=== PATIENT | male | born 1975 ===

== ENCOUNTER 2017-08-07 14:33 | Inpatient (IN) | payer SELFPAY ==
[2017-08-07 15:36] LABS: Oxyhemoglobin 93.1 % (94.0-97.0); Sodium 140 mmol/L (135-148)
[2017-08-07 15:40] LABS: Modified Allen's Test POSITIVE; Vent NO
[2017-08-07] MEDS ORDERED: Acetaminophen 325 MG TAB PO PRN (20:12)
[2017-08-07] MEDS ORDERED: Ondansetron ODT 4 MG TAB PO PRN (20:12)
[2017-08-07] MEDS ORDERED: Albuterol Sulfate 2.5 mg/3 ml Neb NEB PRN (20:12)
[2017-08-07] MEDS ORDERED: Calcium Carbonate 500 MG ChewTAB PO PRN (20:12)
[2017-08-07] MEDS ORDERED: Bisacodyl 5 MG TAB PO PRN (20:12)
[2017-08-07] MEDS ORDERED: Loratadine 10 MG TAB PO SCH (20:12)
[2017-08-07] MEDS ORDERED: Nicotine 14 MG PATCH TD PRN (20:12)
[2017-08-07] MEDS: Famotidine/PF 20 mg/2ml Vial SLOW IVP SCH (20:55)
[2017-08-07] MEDS: Pravastatin Sodium 40 MG TAB PO SCH (20:56)
[2017-08-07] MEDS: guaiFENesin ER 600 MG TAB PO SCH (20:56)
[2017-08-07] MEDS: D5 1/2 NS w/20 mEq KCL 1,000 ML IV SCH (20:57)
[2017-08-07] MEDS ORDERED: Pravastatin Sodium 20 MG TAB PO SCH (21:00)
--- NOTE | 2017-08-07 21:07 | RAD ---
TWO AP VIEWS OF THE CHEST 08/07/17 INDICATION: COPD, cough. COMPARISON: Prior exam performed earlier 11:15 a.m. IMPRESSION: The examination is not appreciably changed. Cardiomegaly persists. No pleural effusion or pneumothora x is evident. Pulmonary vasculature is within normal limits. POS: YARELY
[2017-08-07 22:09] VITALS: BMI 50.9
[2017-08-08 05:32] LABS: #Basophils 0.1 thou/uL (0.0-0.2); #Lymphocytes 0.8 thou/uL (1.20-3.40); #Monocytes 0.4 thou/uL (0.11-0.59); %Basophils 0.7 % (0.0-1.0); %Eosinophils 0.3 % (0.0-10.0); %Lymphocytes 6.7 % (21.0-51.0); %Monocytes 3.1 % (0.0-10.0); Hematocrit 46.2 % (42.0-52.0); Mean Platelet Volume 6.8 fL (7.4-10.4); Red Blood Cell (RBC) Count 4.53 mill/uL (4.70-6.10); White Blood Cell (WBC) Count 11.2 thou/uL (4.8-10.8)
[2017-08-08 05:43] LABS: Anion Gap 11 mmol/L (10-20); BUN (Urea Nitrogen) 13 mg/dL (8.9-20.6); Calc. Creatinine Clearance 288 mL/min (70-130); Calcium 9.6 mg/dL (7.8-10.44); Carbon Dioxide 33 mmol/L (22-29); Chloride 98 mmol/L (98-107); Estimated GFR-MDRD Greater than 90
[2017-08-08 07:12] LABS: ALT (SGPT) 16 U/L (8-55); AST (SGOT) 15 U/L (5-34); Alkaline Phosphatase 57 U/L (40-150); Bilirubin, Direct 0.5 mg/dL (0.1-0.3); Bilirubin, Total 1.2 mg/dL (0.2-1.2); Protein, Total 7.9 g/dL (6.0-8.3)
--- NOTE | 2017-08-08 07:57 | HP-2 ---
CODE STATUS: FULL. PRIMARY CARE PHYSICIAN: Dr. Sebastian ATTENDING: Patrick Hong M.D. RESIDENT: Dr. Kyara Barlow. HISTORY OF PRESENT ILLNESS: Patient is a 42-year-old male with PMH of CHF, transferred from [place] due to shortness of breath, onset 2 days ago. Has had prior episode like this 2 years prior. Had a fever at outside ED to 100.4, presented with an oxygen saturation of 67% on room air. He was given DuoNebs, albuterol nebs, Levaquin, Rocephin, and Solu-Medrol at outside ED and transferred for higher level of care. He was also given 2 grams of mag, nitroglycerin, and aspirin 324 mg at outside ED. Patient reported 2 days of cough with increased sputum and chills along with allergy like symptoms of watery itchy eyes and rhinorrhea. Has not been around any ill contacts. Denies prior lung disease such as COPD, although does have significant smoking history. PAST MEDICAL HISTORY: 1. Gout. 2. Hypertension. 3. Hyperlipidemia. 4. Congestive heart failure. 5. ?Cardiomyopathy. 6. Seasonal allergies. PAST SURGICAL HISTORY: 1. Spinal surgery. 2. Right knee surgery. ALLERGIES: No known drug allergies. MEDICATIONS: 1. Allopurinol 300 mg daily. 2. Carvedilol 25 mg. 3. Lisinopril 20 mg daily. 4. Pravastatin 20 mg daily. 5. Spironolactone 50 mg daily. 6. Furosemide 40 mg daily. FAMILY HISTORY: Dad with coronary artery disease. SOCIAL HISTORY: Patient smokes half pack a day, which is a recent improvement from 1 pack per day for the last 20 years. Occasional/weekend use of alcohol 3 to 4 mixed drinks. Denies drug use. 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 REVIEW OF SYSTEMS: General: No fever. Positive for chills. No change in appetite or sleep. No night sweats. Eyes: Negative for vision changes. ENT: Positive for nasal congestion, sinus pressure, and rhinorrhea. Respiratory: Positive for cough. Positive for sputum production. Positive for congestion. Positive for shortness of breath. Cardiovascular: Denies chest pain or palpitations. Gastrointestinal: Denies nausea, vomiting, diarrhea, constipation. Genitourinary: Denies dysuria, polyuria. Skin: Denies rashes. Musculoskeletal: Denies joint pain, tenderness, stiffness. Neurologic: Denies weakness, numbness. Psychiatric: Denies anxiety, depression. PHYSICAL EXAMINATION: VITAL SIGNS: Blood pressure 120/61, pulse 79, respiratory rate 23, T-max 100.3 , pulse ox 92% on CPAP, currently at 180.53 kilograms. GENERAL: Patient is alert and oriented x4, in mild respiratory distress with CPAP in place, is obese and appropriately interactive. EYES: PERRLA, EOMI. Conjunctivae within normal limits. ENT: Nasal mucosa within normal limits. Oropharynx mildly erythematous. NECK: Supple, with increased neck circumference. CARDIOVASCULAR: Tachycardic on exam. No murmurs. Pedal pulses 2+. RESPIRATORY: Increased effort, no retractions. Positive for wheezing throughout and decreased air movement along with decreased breath sounds in the right lower lateral greater than left. EXTREMITIES: Trace edema. No rash. MUSCULOSKELETAL: Structure within normal limits. Tone within normal limits. NEUROLOGIC: No focal deficits. Cranial nerves II-XII intact. GCS 15. PSYCHIATRIC: Appropriate. LABORATORY DATA: CBC: White blood cell count 17.3, hemoglobin 16.8, hematocrit 49.4, platelets 219, MCV 97, 86% neutrophils. Chemistries: Sodium 140, potassium 3.7, chloride 97, CO2 of 31, BUN 10, creatinine 0.82, glucose 108 , GFR greater than 90, calcium 9.4, total protein 8.5, albumin 4.2. AST 24, ALT 21, alkaline phosphatase 63, total bilirubin 2.6. D-dimer less than 0.27, CK-MB 4.2 and troponin 0.020, BNP 59. Flu A and B negative. Blood gas in the outside ED 7.35, pCO2 of 63.1, PaO2 50.1 and bicarbonate of 34.2. IMAGING: Chest x-ray, no evidence of infiltrate. Poor quality image. ASSESSMENT AND PLAN: A 42-year-old male with past medical history of congestive heart failure, complaining of shortness of breath x2 days with fever and admitted for sepsis and acute respiratory distress with hypoxia secondary to pneumonia. 1. Sepsis secondary to community-acquired pneumonia. Patient is tachycardic, tachypneic, febrile with increased white blood cell count and left shift. We will give Levaquin 750 mg q.24 hours, D5 half normal saline with Kcl at 75ml/ hr. Blood cultures, sputum cultures obtained. BMP and CBC will be repeated in the morning. 2. Acute hypoxic hypercapnic respiratory failure secondary to community- acquired pneumonia. DuoNeb q.4 hours scheduled, q.2 hour p.r.n., methylprednisone 80 mg IV daily, on CPAP, Lasix 40 mg p.o. We will wean to greater than or equal to 92% goal. Chest x-ray in the morning and repeat ABG in the morning. 3. Congestive heart failure. We will provide home medications Coreg, spironolactone, lisinopril, and Lasix. Monitor strict I's and O's and give gentle fluids in the setting of sepsis, we will require a 500 mL bolus now and will have close observation for possible fluid overload. 4. Hypertension. Lisinopril 20 mg daily with home medications. P.r.n. hydralazine for systolic blood pressure greater than 180. 5. Hyperlipidemia daily, pravastatin. 6. Gout daily, allopurinol. 7. Tobacco abuse. Counseled on cessation. 8. Gastrointestinal prophylaxis, famotidine. 9. Deep venous thrombosis prophylaxis. Lovenox. DISPOSITION AND LENGTH OF HOSPITAL STAY: 1 to 3 days. Symptomatic medications will be provided. History and physical exam as well as management was discussed with Dr. Hong. DANNY
[2017-08-08] MEDS ORDERED: Carvedilol 25 MG TAB PO SCH (08:00)
[2017-08-08] MEDS: Spironolactone 100 MG TAB PO SCH (08:16)
[2017-08-08] MEDS: Allopurinol 300 MG TAB PO SCH (08:16)
[2017-08-08] MEDS: Lisinopril 20 MG TAB PO SCH (08:16)
[2017-08-08] MEDS: Furosemide 40 MG TAB PO SCH (08:16)
[2017-08-08] MEDS: guaiFENesin ER 600 MG TAB PO SCH ×2 (08:16→21:17)
[2017-08-08] MEDS: Enoxaparin Sodium 40 MG/0.4 ML SYRINGE SC SCH (08:17)
[2017-08-08] MEDS: Famotidine/PF 20 mg/2ml Vial SLOW IVP SCH ×2 (08:17→21:17)
[2017-08-08] MEDS: Loratadine 10 MG TAB PO SCH (08:17)
[2017-08-08] MEDS: D5 1/2 NS w/20 mEq KCL 1,000 ML IV SCH ×2 (08:46→21:20)
[2017-08-08] MEDS ORDERED: cefTRIAXone\\ROCEPHIN 1 GM in Syringe 10 ML IVPB SCH (09:00)
[2017-08-08] MEDS ORDERED: FLU VACC QS2017-18 36 mo. & older 0.5 ML SYRINGE IM ONE (09:00)
[2017-08-08 09:38] LABS: Oxyhemoglobin 84.3 % (94.0-97.0); Sodium 140 mmol/L (135-148)
[2017-08-08 10:24] LABS: Mode O2 2L/M NC; Modified Allen's Test NOT DONE; Vent NO
--- NOTE | 2017-08-08 14:20 | ADD-PRG ---
ADDENDUM: 08/08/2017 This is an addendum to the note of Dr. Iliana Kay. Mr. 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 His ABGs this morning revealed a pH 7.35, pCO2 of 62, pO2 of 49.2. He also has a possible history of "COPD" although this is not for certain according to the patient. We will continue to follow the patient with the supervisor cleaning and annealing and to continue him on treatment for his pn eumonia. This morning, he appears much more comfortable and says he feels much better. He is awake and alert and he does not appear to be in any respiratory distress. He does not appear to be at all confused.
[2017-08-08] MEDS: Carvedilol 25 MG TAB PO SCH ×2 (15:56→16:10)
--- NOTE | 2017-08-08 16:50 | CON ---
DATE OF CONSULTATION: 08/08/2017 HISTORY OF PRESENT ILLNESS: Mr. Bob is a very pleasant gentleman. He is 42 who lives over in [facility]. He has been followed for cardiomyopathy by a hat forming machine feeder in [place]. He has never been told he has asthma or COPD. He did develop a febrile illness over the last few days, started getting short of breath. He has had a productive cough with this. He went to the emergency room in [place] and subsequently was transferred here. He says he feels 100% better than he felt yesterday. PAST MEDICAL HISTORY: Remarkable for hypertension, lipid disorder, cardiomyopathy that he tells me improved with medical management. PAST SURGICAL HISTORY: History of back surgery and knee surgery. SOCIAL HISTORY: He is a smoker. He is not a daily drinker. REVIEW OF SYSTEMS: Otherwise negative. FAMILY HISTORY: Negative for lung disease at an early age. PHYSICAL EXAMINATION: VITAL SIGNS: Afebrile, heart rate is 85, respiratory rate 16, oximetry is 91 on 2 liters, blood pressure 132/90. HEENT: Pupils are equal. Sclerae is anicteric. NECK: Supple. He has a big neck. LUNGS: Chest is clear now. HEART: Regular rhythm. S1 and S2 are normal. ABDOMEN: Soft and nontender. EXTREMITIES: Without clubbing, cyanosis, or edema. X-RAY FINDINGS: Chest radiograph shows no infiltrates or pulmonary edema. LABORATORY DATA: White count 11.2, hemoglobin 14.7, platelets 215. Sodium 138 , potassium 3.9, chloride 98, bicarbonate 33, BUN 13, creatinine 0.86, pH 7.36, CO2 57, pO2 84; yesterday that was on 40% on 2 liters pH 7.35, CO2 62, pO2 49. IMPRESSION: 1. Obesity hypoventilation. 2. Acute bronchitis. 3. History of cardiomyopathy, not a clinical problem at this time. 4. Tobacco use. He was counseled about smoking. PLAN: Continue current medications. Hopefully, he will be a candidate to go home in 24-48 hours. He definitely needs a sleep study. He tells me his hat forming machine feeder has been talking to him about this, but he has not made the time. [facility]ITALNathan
--- NOTE | 2017-08-08 20:57 | PDOC.FM ---
- Subjective Subjective: Pt sitting upright on nasal cannula this morning. Has just been taken off Bipap by RT at 0700 and pt satting 88-91% on 3L. Pt endorses less SOB than yesterday and improvement in symptoms. - Objective MAR Reviewed: Yes Vital Signs & Weight: Vital Signs (12 hours) Temp Pulse Resp BP BP Pulse Ox 08/08/17 18:26 81 20 92 L 08/08/17 15:15 85 16 91 L 08/08/17 15:00 98.4 F 76 20 160/82 H 93 L 08/08/17 12:10 98.2 F 76 20 132/90 92 L 08/08/17 10:55 82 20 92 L I&O: 08/07/17 08/08/17 08/09/17 06:59 06:59 06:59 Intake Total 1035 Output Total 975 300 Balance 60 -300 Result Diagrams: 08/08/17 04:59 08/08/17 04:59 Radiology Reviewed by me: Yes (perihilar infiltrates R>L, cardiomegaly) Phys Exam - Physical Examination Constitutional: NAD HEENT: PERRLA, oral pharynx no lesions dry mm Neck: no nodes, no JVD diffuse inspiratory & expiratory wheeze w/ ronchi bilaterally Cardiovascular: RRR, no significant murmur Gastrointestinal: soft, non-tender Musculoskeletal: no edema Neurological: non-focal Psychiatric: normal affect, A&O x 3 Skin: no rash, normal turgor Dx/Plan (1) Acute respiratory failure with hypoxia and hypercapnia Code(s): J96.01 - ACUTE RESPIRATORY FAILURE WITH HYPOXIA; J96.02 - ACUTE RESPIRATORY FAILURE WITH HYPERCAPNIA Status: Acute (2) Sepsis due to pneumonia Code(s): J18.9 - PNEUMONIA, UNSPECIFIED ORGANISM; A41.9 - SEPSIS, UNSPECIFIED ORGANISM Status: Acute (3) Chronic congestive heart failure Code(s): I50.9 - HEART FAILURE, UNSPECIFIED Status: Chronic Qualifiers: Congestive heart failure type: unspecified congestive heart failure type Qualified Code(s): I50.9 - Heart failure, unspecified (4) Tobacco abuse Code(s): Z72.0 - TOBACCO USE Status: Chronic (5) Hypertension Code(s): I10 - ESSENTIAL (PRIMARY) HYPERTENSION Status: Chronic Qualifiers: Hypertension type: unspecified Qualified Code(s): I10 - Essential (primary ) hypertension (6) Hyperlipidemia Code(s): E78.5 - HYPERLIPIDEMIA, UNSPECIFIED Status: Chronic Qualifiers: Hyperlipidemia type: unspecified Qualified Code(s): E78.5 - Hyperlipidemia , unspecified - Plan Plan: 42yo CM with pmhx cardiomyopathy and chronic CHF diagnosed approximately 1 year prior here for acute respiratory failure after 3 days of fever, chills, cough and respiratory congestion-- 1) acute hypoxic hypercarbic resp failure- s/p Bipap all night. will recheck ABG this morning after being off Bipap and determine acid/base status. may require bipap again. concern for chronic hypercarbia and likely CHRIS. 2) sepsis secondary to presumed pneumonia- On rocephin & levaquin for presumed pneumonia. perihilar infiltrates on CXR but pending official read. WBC downtrending and afebrile since admission. Cont nebs. Pending BCx. may have some component of obstructive disease w/ CHRIS and/or COPD given 25 pack year hx. 3) chronic CHF- unsure of EF%, pending repeat echo today. not volume overloaded clinically on exam. continue gentle IVF for sepsis. 4) HTN home rx 5) HLD home rx attending- Dr. Yimi Kaye
[2017-08-08] MEDS: Pravastatin Sodium 40 MG TAB PO SCH (21:17)
[2017-08-09 05:17] LABS: #Lymphocytes 2.1 thou/uL (1.20-3.40); #Monocytes 1.1 thou/uL (0.11-0.59); #Neutrophils 12.6 thou/uL (1.40-6.50); %Eosinophils 0.1 % (0.0-10.0); %Lymphocytes 13.2 % (21.0-51.0); %Monocytes 6.7 % (0.0-10.0); Hematocrit 44.5 % (42.0-52.0); Mean Platelet Volume 6.9 fL (7.4-10.4); Red Blood Cell (RBC) Count 4.33 mill/uL (4.70-6.10); White Blood Cell (WBC) Count 15.8 thou/uL (4.8-10.8)
[2017-08-09 05:32] LABS: Anion Gap 9 mmol/L (10-20); BUN (Urea Nitrogen) 19 mg/dL (8.9-20.6); Calc. Creatinine Clearance 275 mL/min (70-130); Calcium 9.5 mg/dL (7.8-10.44); Carbon Dioxide 36 mmol/L (22-29); Chloride 98 mmol/L (98-107); Estimated GFR-MDRD Greater than 90
--- NOTE | 2017-08-09 07:38 | PDOC.FM ---
- Subjective Subjective: pt resting comfortably with bipap mask in place. states once he gets used to the mask feels like he is sleeping better. - Objective MAR Reviewed: Yes Vital Signs & Weight: Vital Signs (12 hours) Temp Pulse Resp BP Pulse Ox 08/09/17 07:16 97.1 F L 58 L 15 163/87 H 99 08/09/17 06:35 67 14 95 08/09/17 06:00 55 L 17 54 L 08/09/17 04:00 98.0 F 66 18 158/82 H 97 08/09/17 02:59 73 15 100 08/09/17 00:00 97.7 F 69 20 93 L 08/08/17 22:47 77 20 93 L 08/08/17 20:00 98.2 F 72 20 149/79 H 95 Weight Weight 180.643 kg I&O: 08/08/17 08/09/17 08/10/17 06:59 06:59 06:59 Intake Total 1035 1740 Output Total 975 1175 Balance 60 565 Result Diagrams: 08/09/17 04:37 08/09/17 04:37 Phys Exam - Physical Examination Constitutional: NAD HEENT: moist MMs, oral pharynx no lesions Neck: no JVD, supple diffuse end exp wheezes & ronchi Cardiovascular: RRR, no significant murmur Gastrointestinal: soft, non-tender Musculoskeletal: no edema Neurological: non-focal, normal sensation Psychiatric: normal affect, A&O x 3 Skin: no rash, normal turgor, cap refill <2 seconds Dx/Plan (1) Acute respiratory failure with hypoxia and hypercapnia Code(s): J96.01 - ACUTE RESPIRATORY FAILURE WITH HYPOXIA; J96.02 - ACUTE RESPIRATORY FAILURE WITH HYPERCAPNIA Status: Acute (2) Sepsis due to pneumonia Code(s): J18.9 - PNEUMONIA, UNSPECIFIED ORGANISM; A41.9 - SEPSIS, UNSPECIFIED ORGANISM Status: Acute (3) Obesity hypoventilation syndrome Code(s): E66.2 - MORBID (SEVERE) OBESITY WITH ALVEOLAR HYPOVENTILATION Status : Acute (4) Chronic congestive heart failure Code(s): I50.9 - HEART FAILURE, UNSPECIFIED Status: Chronic Qualifiers: Congestive heart failure type: diastolic Qualified Code(s): I50.32 - Chronic diastolic (congestive) heart failure Plan: preserved EF 50-55% (5) Tobacco abuse Code(s): Z72.0 - TOBACCO USE Status: Chronic (6) Hypertension Code(s): I10 - ESSENTIAL (PRIMARY) HYPERTENSION Status: Chronic Qualifiers: Hypertension type: unspecified Qualified Code(s): I10 - Essential (primary ) hypertension (7) Hyperlipidemia Code(s): E78.5 - HYPERLIPIDEMIA, UNSPECIFIED Status: Chronic Qualifiers: Hyperlipidemia type: unspecified Qualified Code(s): E78.5 - Hyperlipidemia , unspecified - Plan Plan: 42yo CM with pmhx nonischemic cardiomyopathy here for acute respiratory failure after 3 days of fever, chills, cough and respiratory congestion-- 1) acute hypoxic hypercarbic resp failure- Bipap qhs with improvement. concern for chronic hypercarbia and likely CHRIS & hypoventilation. may require O2 upon discharge 2) sepsis secondary to presumed pneumonia- On levaquin for presumed pneumonia vs. bronchitis. WBC downtrending and afebrile since admission. BCx show NGTD. continue nebs. 3) chronic CHF- repeat echo showed preserved EF. continue meds. not volume overloaded clinically on exam. 4) HTN home rx 5) HLD home rx attending- Dr. Yimi Kaye
[2017-08-09] MEDS ORDERED: Potassium Chloride 20 MEQ TAB PO SCH (07:45)
[2017-08-09] MEDS: Lisinopril 20 MG TAB PO SCH (09:19)
[2017-08-09] MEDS: Carvedilol 25 MG TAB PO SCH ×2 (09:19→17:18)
[2017-08-09] MEDS: guaiFENesin ER 600 MG TAB PO SCH ×2 (09:19→20:49)
[2017-08-09] MEDS: Spironolactone 100 MG TAB PO SCH (09:19)
[2017-08-09] MEDS: Loratadine 10 MG TAB PO SCH (09:20)
[2017-08-09] MEDS: Allopurinol 300 MG TAB PO SCH (09:20)
[2017-08-09] MEDS: Furosemide 40 MG TAB PO SCH (09:20)
[2017-08-09] MEDS: Famotidine/PF 20 mg/2ml Vial SLOW IVP SCH (09:21)
[2017-08-09] MEDS: Enoxaparin Sodium 40 MG/0.4 ML SYRINGE SC SCH (09:21)
[2017-08-09] MEDS: Potassium Chloride 20 MEQ TAB PO SCH (09:26)
--- NOTE | 2017-08-09 12:40 | ADD-PRG ---
DATE OF SERVICE: 08/09/2017 ADDENDUM This is an addendum to the note of Dr. Iliana Kay. Mr. Bob again continues awake and alert. Vital signs are stable. He will likely be transferred to the floor, although he still is at times requiring BiPAP. He likely has sleep apnea who urged to get a sleep study upon being discharged. He seems to understand the importance of getting this down as it has been recommended in the past. Otherwise, overall clinically is improving.
--- NOTE | 2017-08-09 15:53 | PRG ---
DATE OF SERVICE: 08/09/2017 SUBJECTIVE: Mr. Bob says he feels better. He thinks that pressure settings on BiPAP are a little h igh. OBJECTIVE: VITAL SIGNS: He is afebrile, heart rate in the 70s, respiratory rate is 20, oximetry is 92, blood pr essure 143/77. LUNGS: Clear. HEART: Regular rhythm. LABORATORY: White count 15.8, hemoglobin 14.4, platelets 253. Sodium 140, potassium 3.4, chloride 9 8, bicarbonate 36, BUN 19, creatinine 0.9. IMPRESSION: 1. Obesity hypoventilation. 2. History of cardiomyopathy. 3. Asthmatic bronchitis. 4. Tobacco use up until this admission. I would continue with BiPAP at night and I have adjusted his settings. In my opinion, he can be safe ly transferred to a medical bed.
[2017-08-09] MEDS: Famotidine 20 MG TAB PO SCH (20:48)
[2017-08-09] MEDS: Pravastatin Sodium 40 MG TAB PO SCH (20:49)
[2017-08-09] MEDS ORDERED: hydrALAZINE 20 MG/ML VIAL SLOW IVP SCH (22:00)
[2017-08-10 05:49] LABS: #Monocytes 0.9 thou/uL (0.11-0.59); #Neutrophils 11.4 thou/uL (1.40-6.50); %Basophils 0.3 % (0.0-1.0); %Eosinophils 0.1 % (0.0-10.0); %Lymphocytes 14.2 % (21.0-51.0); %Monocytes 5.9 % (0.0-10.0); Hematocrit 43.5 % (42.0-52.0); Mean Platelet Volume 6.5 fL (7.4-10.4); White Blood Cell (WBC) Count 14.3 thou/uL (4.8-10.8)
[2017-08-10 06:00] LABS: Anion Gap 11 mmol/L (10-20); BUN (Urea Nitrogen) 21 mg/dL (8.9-20.6); Calc. Creatinine Clearance 301 mL/min (70-130); Calcium 9.4 mg/dL (7.8-10.44); Carbon Dioxide 31 mmol/L (22-29); Chloride 98 mmol/L (98-107); Estimated GFR-MDRD Greater than 90
[2017-08-10] MEDS: Furosemide 40 MG TAB PO SCH (06:22)
[2017-08-10] MEDS ORDERED: Potassium Chloride 20 MEQ TAB PO SCH (08:15)
[2017-08-10] MEDS: Enoxaparin Sodium 40 MG/0.4 ML SYRINGE SC SCH (08:39)
[2017-08-10] MEDS: Lisinopril 20 MG TAB PO SCH (08:40)
[2017-08-10] MEDS: Allopurinol 300 MG TAB PO SCH (08:40)
[2017-08-10] MEDS: Loratadine 10 MG TAB PO SCH (08:40)
[2017-08-10] MEDS: Carvedilol 25 MG TAB PO SCH ×2 (08:40→17:46)
[2017-08-10] MEDS: Potassium Chloride 20 MEQ TAB PO SCH (08:40)
[2017-08-10] MEDS: Famotidine 20 MG TAB PO SCH ×2 (08:41→20:26)
[2017-08-10] MEDS: guaiFENesin ER 600 MG TAB PO SCH ×2 (08:41→20:25)
[2017-08-10] MEDS: Spironolactone 100 MG TAB PO SCH (08:41)
[2017-08-10] MEDS ORDERED: hydrALAZINE 10 MG TAB PO SCH (09:00)
--- NOTE | 2017-08-10 10:25 | PDOC.FM ---
Addendum entered and electronically signed by Jim Paz MD 08/10/17 10:32 : Hypokalemia- replaced Potassium 40 mEq and repeat BMP in AM. Original Note: - Subjective Subjective: CC: chest congestion HPI: Reports central chest congestion. Denies chest pain. States he has been resting well with BiPAP and understands he need formal sleep study performed. denies EARLY or focal weakness. - Objective MAR Reviewed: Yes Vital Signs & Weight: Vital Signs (12 hours) Temp Pulse Resp BP BP BP Pulse Ox 08/10/17 10:22 156/88 H 08/10/17 08:40 72 186/101 H 08/10/17 07:59 98.2 F 72 20 200/130 H 98 08/10/17 07:40 71 16 97 08/10/17 07:32 97.5 F L 75 16 08/10/17 05:19 97.5 F L 75 16 214/62 H 98 08/10/17 03:44 61 18 98 08/10/17 03:43 99 08/09/17 23:00 70 178/108 H 08/09/17 22:58 62 16 100 Weight Weight 179.759 kg I&O: 08/09/17 08/10/17 08/11/17 06:59 06:59 06:59 Intake Total 1740 Output Total 1175 450 Balance 565 -450 Result Diagrams: 08/10/17 04:49 08/10/17 04:49 EKG Reviewed by me: Yes (SR with BBB rate 70s) <Jim Paz - Last Filed: 08/10/17 10:23> - Objective Vital Signs & Weight: Vital Signs (12 hours) Temp Pulse Resp BP BP Pulse Ox 08/10/17 12:06 75 16 08/10/17 11:59 97.7 F 73 20 177/79 H 93 L 08/10/17 11:16 72 186/101 H 08/10/17 10:22 156/88 H 08/10/17 08:40 72 186/101 H 08/10/17 07:59 98.2 F 72 20 200/130 H 98 08/10/17 07:40 71 16 97 08/10/17 07:32 97.5 F L 75 16 08/10/17 05:19 97.5 F L 75 16 214/62 H 98 08/10/17 03:44 61 18 98 08/10/17 03:43 99 Weight Weight 179.759 kg I&O: 08/09/17 08/10/17 08/11/17 06:59 06:59 06:59 Intake Total 1740 Output Total 1175 450 Balance 565 -450 Result Diagrams: 08/10/17 04:49 08/10/17 04:49 <Regan Vasquez - Last Filed: 08/10/17 14:27> Phys Exam - Physical Examination Constitutional: NAD HEENT: moist MMs, sclera anicteric Neck: no nodes, supple Respiratory: wheezing present wheezing LLL and RUL. rhonchi RLL Cardiovascular: RRR, no significant murmur Gastrointestinal: soft, non-tender Musculoskeletal: edema present (trace) Neurological: non-focal, moves all 4 limbs Psychiatric: normal affect, A&O x 3 Skin: no rash, cap refill <2 seconds <Jim Paz - Last Filed: 08/10/17 10:23> Dx/Plan (1) Acute respiratory failure with hypoxia and hypercapnia Code(s): J96.01 - ACUTE RESPIRATORY FAILURE WITH HYPOXIA; J96.02 - ACUTE RESPIRATORY FAILURE WITH HYPERCAPNIA Status: Acute Plan: Weaning off oxygen. Still requires BiPAP at night. will need outpatient evaluation. (2) Hypertension Code(s): I10 - ESSENTIAL (PRIMARY) HYPERTENSION Status: Chronic QualifierTitle: Hypertension type: unspecified Qualified Code(s): I10 - Essential (primary) hypertension Plan: SBP remains elevated in 200s. - Increased Lisinopril to 40 mg - Started hydralazine 10 mg QID and Amlodipine 5 mg daily - may need to D/C hydralazine as amlodipine begins to take effect. (3) CAP (community acquired pneumonia) Code(s): J18.9 - PNEUMONIA, UNSPECIFIED ORGANISM Status: Acute QualifierTitle: Laterality: unspecified laterality Qualified Code(s): J18.9 - Pneumonia, unspecified organism Plan: Levaquin day 4. Cultures negative to date - switch to PO levaquin. Will need 7 days total. (4) Obesity hypoventilation syndrome Code(s): E66.2 - MORBID (SEVERE) OBESITY WITH ALVEOLAR HYPOVENTILATION Status : Acute Plan: continue BiPAP. Outpatient Evaluation for sleep apnea. (5) Chronic congestive heart failure Code(s): I50.9 - HEART FAILURE, UNSPECIFIED Status: Chronic QualifierTitle: Congestive heart failure type: diastolic Qualified Code(s ): I50.32 - Chronic diastolic (congestive) heart failure Plan: Echo showed preserved EF. no signs of fluid overload. Follow up outpatient. <Jim Paz - Last Filed: 08/10/17 10:23> Attending Addendum - Attending Addendum I personally evaluated the patient and discussed the management with Dr. Paz. I agree with the History, Examination, Assessment and Plan documented above with any addition or exceptions noted below. When BP is better controlled, patient may be ready for discharge. Convert to po meds. <Regan Vasquez - Last Filed: 08/10/17 14:27>
[2017-08-10] MEDS: Amlodipine 5 MG TAB PO SCH (11:16)
[2017-08-10] MEDS: hydrALAZINE 10 MG TAB PO SCH ×3 (14:29→20:25)
--- NOTE | 2017-08-10 15:00 | PRG ---
DATE OF SERVICE: 08/10/2017 SUBJECTIVE: Mr. Bob did well overnight. He would like to lower pressures. He informed me he does not have any coverage. He has had some elevated blood pressures over the last 24 hours. His blood p ressure 06/28/2017 was 156/88. His heart rate is 72, his respiratory rate is 18. His lungs are completely clear now. IMPRESSION: Asthmatic bronchitis. PLAN: 1. Prednisone, 40 for 4 days, 20 for 6 days, 10 for 6 days. 2. Doxycycline 100 mg twice a day. 3. Nebulizer. 4. Ipratropium unit dose 4 times a day and albuterol 4 times a day. If he is doing well, he can do this 2-3 times a day. He can pay ramirez for the above medicines and these are reasonably inexpensive compared to other prescr iption drugs that are out there. [facility]. He will see me in 2 weeks. At that time, we will probably prescribe an auto titrating device. He th inks he has a CPAP at home, and if it has a chip in it, we can guess at the pressure, try him for a m ont and do a download. There is no doubt in my mind that he has significant sleep apnea. At some point in time, we can do overnight oximetry. He does not have a healthcare coverage at this point in time, so we have to manage to the best of our ability within the confines of what he can aff ord financially. I will be happy to see him in a couple weeks.
[2017-08-10] MEDS: Pravastatin Sodium 40 MG TAB PO SCH (20:26)
[2017-08-11 05:10] LABS: #Lymphocytes 2.3 thou/uL (1.20-3.40); #Monocytes 0.9 thou/uL (0.11-0.59); #Neutrophils 10.2 thou/uL (1.40-6.50); %Basophils 0.2 % (0.0-1.0); %Eosinophils 0.3 % (0.0-10.0); %Lymphocytes 16.9 % (21.0-51.0); %Monocytes 6.7 % (0.0-10.0); Hematocrit 46.8 % (42.0-52.0); Mean Platelet Volume 6.5 fL (7.4-10.4); Red Blood Cell (RBC) Count 4.62 mill/uL (4.70-6.10); White Blood Cell (WBC) Count 13.4 thou/uL (4.8-10.8)
[2017-08-11 05:35] LABS: Anion Gap 12 mmol/L (10-20); BUN (Urea Nitrogen) 21 mg/dL (8.9-20.6); Calc. Creatinine Clearance 272 mL/min (70-130); Calcium 9.6 mg/dL (7.8-10.44); Carbon Dioxide 33 mmol/L (22-29); Chloride 100 mmol/L (98-107); Estimated GFR-MDRD Greater than 90
[2017-08-11] MEDS: Enoxaparin Sodium 40 MG/0.4 ML SYRINGE SC SCH (08:19)
[2017-08-11] MEDS: Potassium Chloride 20 MEQ TAB PO SCH (08:19)
[2017-08-11] MEDS: guaiFENesin ER 600 MG TAB PO SCH (08:19)
[2017-08-11] MEDS: Spironolactone 100 MG TAB PO SCH (08:19)
[2017-08-11] MEDS: hydrALAZINE 10 MG TAB PO SCH (08:20)
[2017-08-11] MEDS: Furosemide 40 MG TAB PO SCH (08:20)
[2017-08-11] MEDS: Famotidine 20 MG TAB PO SCH (08:20)
[2017-08-11] MEDS: Amlodipine 5 MG TAB PO SCH (08:20)
[2017-08-11] MEDS: Allopurinol 300 MG TAB PO SCH (08:20)
[2017-08-11] MEDS: Carvedilol 25 MG TAB PO SCH (08:20)
[2017-08-11] MEDS: Loratadine 10 MG TAB PO SCH (08:20)
[2017-08-11] MEDS: Lisinopril 20 MG TAB PO SCH (08:20)
[2017-08-11] MEDS ORDERED: hydrALAZINE 10 MG TAB PO SCH (09:00)
--- NOTE | 2017-08-11 09:03 | PDOC.FM ---
- Subjective Subjective: CC: Ready to go home HPI: Feeling well today. No concerns. Denies chest pain or SOB. States he already has f/u with blank driller on 08/20/17 and can get sleep study set up at that time. - Objective MAR Reviewed: Yes Vital Signs & Weight: Vital Signs (12 hours) Temp Pulse Resp BP BP BP Pulse Ox 08/11/17 08:20 60 206/114 H 08/11/17 08:04 98.3 F 60 16 08/11/17 07:25 98.3 F 60 16 151/82 H 99 08/11/17 06:24 65 17 08/11/17 04:45 97.7 F 74 16 141/70 H 97 08/11/17 01:29 100 18 92 L 08/11/17 00:29 97.6 F 80 18 186/91 H 97 08/11/17 00:16 100 08/10/17 22:55 64 16 100 08/10/17 22:08 68 141/91 H 08/10/17 21:18 65 18 95 Weight Weight 173.953 kg I&O: 08/10/17 08/11/17 08/12/17 06:59 06:59 06:59 Intake Total 800 Output Total 450 1800 Balance -450 -1000 Result Diagrams: 08/11/17 04:53 08/11/17 04:53 EKG Reviewed by me: Yes (SR with occasional PJC rate 60s) <Jim Paz - Last Filed: 08/11/17 09:00> - Objective Vital Signs & Weight: Vital Signs (12 hours) Temp Pulse Resp BP Pulse Ox 08/11/17 12:01 70 135/65 08/11/17 11:30 98.6 F 74 16 163/83 H 95 08/11/17 09:28 60 08/11/17 08:20 60 08/11/17 08:04 98.3 F 60 16 08/11/17 07:25 98.3 F 60 16 151/82 H 99 08/11/17 06:24 65 17 08/11/17 04:45 97.7 F 74 16 141/70 H 97 Weight Weight 173.953 kg I&O: 08/10/17 08/11/17 08/12/17 06:59 06:59 06:59 Intake Total 800 Output Total 450 1800 Balance -450 -1000 Result Diagrams: 08/11/17 04:53 08/11/17 04:53 <Regan Vasquez - Last Filed: 08/11/17 13:47> Phys Exam - Physical Examination Constitutional: NAD HEENT: moist MMs, sclera anicteric Neck: no nodes, supple Respiratory: no wheezing, no rales, no rhonchi, clear to auscultation bilateral Cardiovascular: RRR, no significant murmur Gastrointestinal: soft, no distention Musculoskeletal: pulses present Neurological: non-focal, moves all 4 limbs Psychiatric: normal affect, A&O x 3 Skin: no rash, cap refill <2 seconds <Jim Paz - Last Filed: 08/11/17 09:00> Dx/Plan (1) Hypertension Code(s): I10 - ESSENTIAL (PRIMARY) HYPERTENSION Status: Chronic QualifierTitle: Hypertension type: unspecified Qualified Code(s): I10 - Essential (primary) hypertension Plan: SBP remains elevated in 180s to 200s. - given additional 10 mg hydralazine PO with morning dose and increased dose to 25 mg QID. - if BP improves with new dose, will consider d/c today with close outpatient follow up. (2) Acute respiratory failure with hypoxia and hypercapnia Code(s): J96.01 - ACUTE RESPIRATORY FAILURE WITH HYPOXIA; J96.02 - ACUTE RESPIRATORY FAILURE WITH HYPERCAPNIA Status: Acute Plan: Off oxygen. Still requires BiPAP at night. will need outpatient evaluation for CHRIS. (3) CAP (community acquired pneumonia) Code(s): J18.9 - PNEUMONIA, UNSPECIFIED ORGANISM Status: Acute QualifierTitle: Laterality: unspecified laterality Qualified Code(s): J18.9 - Pneumonia, unspecified organism Plan: Levaquin day 5. Cultures negative to date -PO levaquin. Will need 7 days total. (4) Obesity hypoventilation syndrome Code(s): E66.2 - MORBID (SEVERE) OBESITY WITH ALVEOLAR HYPOVENTILATION Status : Acute Plan: continue BiPAP. Outpatient Evaluation for sleep apnea. (5) Chronic congestive heart failure Code(s): I50.9 - HEART FAILURE, UNSPECIFIED Status: Chronic QualifierTitle: Congestive heart failure type: diastolic Qualified Code(s ): I50.32 - Chronic diastolic (congestive) heart failure Plan: Echo showed preserved EF. no signs of fluid overload. Follow up outpatient. <Jim Paz - Last Filed: 08/11/17 09:00> Attending Addendum - Attending Addendum I personally evaluated the patient and discussed the management with Dr. Paz. I agree with the History, Examination, Assessment and Plan documented above with any addition or exceptions noted below. Patients BP is improving. Stable for discharge if BP today is improved. <Regan Vasquez - Last Filed: 08/11/17 13:47>
[2017-08-11] MEDS ORDERED: Amlodipine 5 MG TAB PO SCH ×2 (09:17→09:30)
[2017-08-11 11:54] VITALS: TEMP 98.6
[2017-08-11 12:02] VITALS: BP 135/65
[2017-08-11] MEDS ORDERED: hydrALAZINE 25 MG TAB PO SCH ×2 (14:00→17:00)
--- NOTE | 2017-08-11 14:22 | DIS-2 ---
DATE OF ADMISSION: 08/07/2017 DATE OF DISCHARGE: 08/11/2017 ADMITTING ATTENDING: Patrick Hong M.D. DISCHARGE ATTENDING: Regan Vasquez M.D. ADMITTING RESIDENT: Kyara Barlow D.O. DISCHARGE RESIDENT: Jim Paz M.D. CONSULTATIONS: Bryan Fuentes M.D. - Pulmonology. PROCEDURES: BiPAP required during the first day of hospitalization. IMAGIN. Chest x-ray on 08/07/2017, cardiomegaly, no pleural effusions or pneumothorax. Pulmonary vasculature within normal limits. 2. Transthoracic echocardiogram showing left ventricular ejection fraction of 50%-55%, technically difficult study with poor endocardial definition, mild mitral regurgitation present and mild tricuspid regurgitation. Estimated right arterial pressure 10 mmHg. PRIMARY DIAGNOSES: 1. Resolved acute hypoxic hypercapnic respiratory failure secondary to community-acquired pneumonia. 2. Presumed obstructive sleep apnea. 3. Hypertension. 4. Heart failure with preserved ejection fraction. SECONDARY DIAGNOSES: 1. Hyperlipidemia. 2. Gout. DISCHARGE MEDICATIONS: 1. Allopurinol 300 mg daily. 2. Amlodipine 10 mg daily. 3. Carvedilol 25 mg b.i.d. 4. Doxycycline 100 mg b.i.d. 5. Famotidine 20 mg b.i.d. 6. Lasix 40 mg daily. 7. Hydralazine 25 mg q.i.d. 8. DuoNeb 3 mL nebulizer treatment q.i.d. p.r.n. 9. Levaquin 750 mg for 2 additional days. 10. Lisinopril 40 mg daily. 11. Claritin 10 mg daily. 12. Pravastatin 40 mg at bedtime. 13. Prednisone 10 mg Dosepak 20 mg p.o. as directed. 14. Spironolactone 50 mg q.a.m. 15. Carvedilol 37.5 mg b.i.d. DISCONTINUED MEDICATIONS: Lisinopril 20 mg daily. HISTORY OF PRESENT ILLNESS AND HOSPITAL COURSE: Mr. Bob is a pleasant 42-year- old male who presented to the hospital with 2-day history of shortness of breath. He had had prior COPD exacerbations in the past and was concerned he was having another exacerbation. He reported increased sputum production, fevers and chills throughout this time. He initially required BiPAP due to acute respiratory distress, but quickly improved during the first day of hospitalization. He was transferred out of [facility] on day 2 of the hospitalization. His respiratory symptoms continued to improve throughout his stay. However, his blood pressure continued to remain elevated prompting an increase in his lisinopril to 40 mg daily and initiation of amlodipine and hydralazine orally. It was explained to the patient that he may not require as much antihypertensive medication as the amlodipine begins to take effect. He was also counseled multiple times on the importance of following up with his primary care doctor or his outpatient [facility] executive director to set up an outpatient sleep study for evaluation of obstructive sleep apnea. He expressed understanding of this request. His blood pressure responded to the change in his antihypertensive therapy and he was asymptomatic at the time of discharge. Vital signs at time of discharge were all within normal limits. DISPOSITION: He is discharged in stable condition. DISCHARGE INSTRUCTIONS: 1. Location: Home. 2. Diet: Heart healthy, low sodium. 3. Activity: As tolerated. 4. Follow up. He is instructed to follow up with his primary care provider within 3 days of discharge and to keep his currently scheduled appointment with his [facility] on 08/20/2017. Less than 30 minutes were spent on this discharge including preparing discharge materials and providing patient education. DANNY
[2017-08-12] MEDS ORDERED: Amlodipine 10 MG TAB PO SCH (09:00)
--- NOTE | 2017-08-14 15:59 | PQF ---
Carlos Bob GABRIEL MD [id number] CLINICAL DOCUMENTATION CLARIFICATION FORM: POST DISCHARGE Addendum to original discharge summary date: ____ Late entry note date: __ DATE: 08/14/17 ATTN: Regan Vasquez M.D. Please exercise your independent, professional judgment in responding to the clarification form. Clinical indicators are provided on the bottom of this form for your review H & P pg. 3 Assessment and Plan: # 1. Sepsis secondary to community acquired pneumonia. Patent is tachycardic, tachypneic, febrile with increased WBC count Family Medicine Progress Note 08/09/17 pg. 2 Dx/Plan #2 Sepsis due to pneumonia Please check appropriate box(s): [x ] Sepsis due to: (Pna, UTI, gangrenous gall bladder, etc.) _[place], Type unknown Due to: [ ] Device (please specify) [ ] Implant [ ] Graft [ ] Infusion [ ] SIRS due to non-infectious process (please specify etiology) [ ] with organ dysfunction [ ] without organ dysfunction [ ] Severe sepsis with acute organ dysfunction of: (Examples: respiratory failure, encephalopathy, acute kidney failure, other) [ ] Localized infection without sepsis [ ] Other diagnosis [ ] Unable to determine In addition, please specify: Present on Admission (POA): [ x ] Yes [ ] No [ ] Unable to determine For continuity of documentation, please document condition throughout progress notes and discharge summary. Thank You. CLINICAL INDICATORS - SIGNS / SYMPTOMS / LABS Altered mental status Fever or hypothermia (<96.8 F/36 C or > 100.4 F/38C) Respiratory rate >22/min, Hypoxemia, SBP <100mmHg Metabolic acidosis Lactic Acid >2mmol/L, Increase BUN/Circular Shear Operator, decrease GFR, coag abnormalities, thrombocytopenia-plts <100k Oliguria Shock-hypotension resistant to IV fluid boluses WBC count (>12,000/mm^4 or <4000/mm^3 or 10% neuts, 10% bands) Hyperglycemia in absence of diabetes mellitus Positive blood cultures RISK FACTORS Infection/Bacteremia Pneumonia, UTI, infected wound, gangrenous gall bladder Diabetes or Cancer Surgery / surgical instrumentation / trauma Ruptured/perforated bowel, ruptured appendix Immunosuppression Advancing Age TREATMENTS: Initiation Sepsis Protocol ICU Daily CBC Blood/sputum/wound cultures ID Consult IV antibiotics - broad spectrum IV ?uids Vasopressors, meds (This form is maintained as a part of the permanent medical record) 2014 [employer]. All Rights Reserved [email or web address] [phone] DANNY
== END 2017-08-11 14:15 | disposition home or self-care (01) | DRG 871 ==
LOC: ERS 14:33 → IMCU/EMU 20:02 → 2SE 08-09 23:23
PROVIDERS: ADMIT Family Medicine; ATTEND Family Medicine
PROC: 5A09457 Assistance with Respiratory Ventilation, 24-96 Consecutive Hours, Continuous Positive Airway Pressure (ICD-10-PCS; principal; 2017-08-07)
DX: A41.9 Sepsis, unspecified organism (principal); J96.02 Acute respiratory failure with hypercapnia; J96.01 Acute respiratory failure with hypoxia; I11.0 Hypertensive heart disease with heart failure; J18.9 Pneumonia, unspecified organism; I50.32 Chronic diastolic (congestive) heart failure; E66.2 Morbid (severe) obesity with alveolar hypoventilation; Z68.42 Body mass index [BMI] 45.0-49.9, adult; J44.0 Chronic obstructive pulmonary disease with (acute) lower respiratory infection; G47.33 Obstructive sleep apnea (adult) (pediatric); E78.5 Hyperlipidemia, unspecified; M10.9 Gout, unspecified; E87.6 Hypokalemia; F17.210 Nicotine dependence, cigarettes, uncomplicated; Z82.49 Family history of ischemic heart disease and other diseases of the circulatory system
CPT/HCPCS: 36415; 71010; 80048; 80076; 82805; 85025; 87070; 87205; 93306; 94640; 94660; 96360; 96361; A4216; J0696; J1650; J1956; J2920; J7620